=== PATIENT | female | born 1955 | race Caucasian/White ===

== ENCOUNTER 2016-10-27 20:10 | Emergency (ER) | payer BC ==
[~2016-10-27] VITALS: Ht 162.6 cm; Wt 62.0 kg
[2016-10-27 20:23] VITALS: BP 133/78; PULSE 70; RESP 18; TEMP 97.3; O2SAT 95
[2016-10-27] MEDS ORDERED: SODIUM CHLOR 0.9% 1000 ML INJ 1,000 ML IV SCH (21:12)
[2016-10-27] MEDS ORDERED: SODIUM CHLORIDE 0.9% FLUSH 10 ML FLUSH IV FLUSH PRN (21:15)
[2016-10-27] MEDS ORDERED: ONDANSETRON HCL 4 MG/2 ML VIAL IVP ONE (21:15)
[2016-10-27] MEDS ORDERED: KETOROLAC TROMETHAMINE 30 MG/ML (IVP) VIAL IVP ONE (21:15)
--- NOTE | 2016-10-27 21:24 | PD ---
HPI Chief Complaint: Complaint Time Seen by Provider: 20:54 Travel History International Travel<30 days: No Contact w/Intl Traveler<30days: No Traveled to known affect area: No History of Present Illness HPI Patient 61-year-old female with a history of kidney stones presents emergency department with left upper quadrant and left flank pain since Saturday. She went to an urgent care facility and was prescribed Macrobid for urinary tract infection. She took this for 2 days and found that it was not working so she called her primary care physician who is [place] of [place] who called her in a prescription of Cipro. She's been taking this now. She states that it is not getting any better so she decided to come in and be seen. She denies any blood in her urine but does endorse some mild nausea without vomiting. Denies any chest pain or shortness of breath. States symptoms been gradually worsening. PFSH Past Medical History Narrative Medical Hyperlipidemia ?: Not Past Surgical History Hysterectomy: Yes Family History Family History: Negative Social History Tobacco Use: No Allergies-Medications (Allergen,Severity, Reaction): Coded Allergies: Benadryl (Verified Allergy, Mild, restless, 10/27/16) Codeine (Verified Allergy, Mild, restless, 10/27/16) Morphine (Verified Allergy, Unknown, 10/27/16) Uncoded Allergies: tylenol PM (Adverse Reaction, Mild, 10/27/16) Reported Meds & Prescriptions Reported Meds & Active Scripts Active Zofran Odt (Ondansetron Odt) 4 Mg Tab 4 Mg SL Q6HR PRN Percocet (Oxycodone-Acetaminophen) 5-325 mg Tab 1 Tab PO Q6H PRN Flomax (Tamsulosin HCl) 0.4 Mg Cap 0.4 Mg PO HS Reported Cipro (Ciprofloxacin HCl) 500 Mg Tab 500 Mg PO BID Nitrofurantoin Monohydrate Macrocrystals (Nitrofurantoin Monoh/Nitrofur Macro) 100 Mg Cap 100 Mg PO BID Lipitor (Atorvastatin Calcium) 10 Mg Tab 10 Mg PO HS Premarin (Estrogens, Conjugated) 0.45 Mg Tab 0.45 Mg PO DAILY Lortab (Hydrocodone-Acetaminophen) 5-325 Mg Tab 1 Tab PO Q4H PRN Review of Systems Except as stated in HPI: all other systems reviewed are Neg Physical Exam Narrative GENERAL: Well-developed well-nourished appears in minimal discomfort. SKIN: Focused skin assessment warm/dry. HEAD: Atraumatic. Normocephalic. EYES: Pupils equal and round. No scleral icterus. No injection or drainage. ENT: No nasal bleeding or discharge. Mucous membranes pink and moist. NECK: Trachea midline. No JVD. CARDIOVASCULAR: Regular rate and rhythm. No murmur appreciated. RESPIRATORY: No accessory muscle use. Clear to auscultation. Breath sounds equal bilaterally. GASTROINTESTINAL: Abdomen soft, non-tender, nondistended. Hepatic and splenic margins not palpable. MUSCULOSKELETAL: No obvious deformities. No clubbing. No cyanosis. No edema. Minimal left-sided CVA tenderness, abdomen is soft no percussive no rebound tenderness. NEUROLOGICAL: Awake and alert. No obvious cranial nerve deficits. Motor grossly within normal limits. Normal speech. PSYCHIATRIC: Appropriate mood and affect; insight and judgment normal. Data Data Last Documented VS Vital Signs Date Time Temp Pulse Resp B/P Pulse Ox O2 Delivery O2 Flow Rate FiO2 10/27/16 23:28 97 138/74 98 10/27/16 22:34 20 10/27/16 21:43 97.9 Orders Urinalysis - C+S If Indicated (10/27/16 20:54) Complete Blood Count With Diff (10/27/16 21:12) Comprehensive Metabolic Panel (10/27/16 21:12) Lipase (10/27/16 21:12) Iv Access Insert/Monitor (10/27/16 21:12) Ecg Monitoring (10/27/16 21:12) Oximetry (10/27/16 21:12) Ondansetron Inj (Zofran Inj) (10/27/16 21:15) Sodium Chlor 0.9% 1000 Ml Inj (Ns 1000 M (10/27/16 21:12) Sodium Chloride 0.9% Flush (Ns Flush) (10/27/16 21:15) Electrocardiogram (10/27/16 21:12) Ketorolac Inj (Toradol Inj) (10/27/16 21:15) Ct Abd/Pel W/O Iv Contrast (10/27/16 ) Labs Laboratory Tests Test 10/27/16 10/27/16 21:20 21:38 Urine Color YELLOW Urine Turbidity CLEAR Urine pH 5.0 Urine Specific [place] 1.025 Urine Protein 30 mg/dL Urine Glucose (UA) NEG mg/dL Urine Ketones TRACE mg/dL Urine Occult Blood LARGE Urine Nitrite NEG Urine Bilirubin NEG Urine Leukocyte Esterase NEG Urine RBC 25-49 /hpf Urine WBC 0-2 /hpf Urine Squamous Epithelial 6-8 /hpf Cells Urine Calcium Oxalate Crystals MOD /hpf Urine Bacteria RARE /hpf Microscopic Urinalysis Comment CULT NOT INDICATED White Blood Count 10.2 TH/MM3 Red Blood Count 4.38 MIL/MM3 Hemoglobin 13.9 GM/DL Hematocrit 39.9 % Mean Corpuscular Volume 91.2 FL Mean Corpuscular Hemoglobin 31.9 PG Mean Corpuscular Hemoglobin 34.9 % Concent Red Cell Distribution Width 11.9 % Platelet Count 226 TH/MM3 Mean Platelet Volume 8.6 FL Neutrophils (%) (Auto) 80.3 % Lymphocytes (%) (Auto) 9.9 % Monocytes (%) (Auto) 5.2 % Eosinophils (%) (Auto) 1.2 % Basophils (%) (Auto) 3.4 % Neutrophils # (Auto) 8.3 TH/MM3 Lymphocytes # (Auto) 1.0 TH/MM3 Monocytes # (Auto) 0.5 TH/MM3 Eosinophils # (Auto) 0.1 TH/MM3 Basophils # (Auto) 0.3 TH/MM3 CBC Comment DIFF FINAL Differential Comment Sodium Level 142 MEQ/L Potassium Level 3.3 MEQ/L Chloride Level 107 MEQ/L Carbon Dioxide Level 25.0 MEQ/L Anion Gap 10 MEQ/L Blood Urea Nitrogen 17 MG/DL Creatinine 0.94 MG/DL Estimat Glomerular Filtration 61 ML/MIN Rate Random Glucose 113 MG/DL Calcium Level 8.9 MG/DL Total Bilirubin 0.7 MG/DL Aspartate Amino Transf 21 U/L (AST/SGOT) Alanine Aminotransferase 24 U/L (ALT/SGPT) Alkaline Phosphatase 97 U/L Total Protein 7.1 GM/DL Albumin 3.9 GM/DL Lipase 133 U/L [facility] Medical Decision Making Medical Screen Exam Complete: Yes Emergency Medical Condition: Yes Interpretation(s) EKG shows normal sinus rhythm with normal axis and normal R-wave progression. No concerning ST segment changes. Intervals within normal limits. This is normal EKG. Differential Diagnosis Kidney stone, diverticulitis, urinary tract infection, pyonephritis. Narrative Course Patient roomed emergency department, appears in minimal discomfort. Was given Toradol Zofran and fluids and had complete relief of her symptoms. CAT scan does show an 8 mm obstructing kidney stone on the right side. Patient states she's never had to have intervention before. She asked about ultrasound lithotripsy for kidney stone. At this time I be happy to refer her outpatient. Patient states currently she is on vacation and would like to return all. She states she has several contacts and the medical community there be able to get follow-up in the short-term. Discussed with her that she has a low probability of passing this kidney stone on her own approximately 20-30%. Discussed if she should have increasing abdominal pain fevers nausea or vomiting that she return the emergency department. Recommended that she continue her Cipro until gone. Discussed symptomatic management home and returned ED criteria. Diagnosis Primary Impression: Nephrolithiasis Med/Other Pt SpecificInfo: Prescription(s) given Scripts Ondansetron Odt (Zofran Odt)4 Mg Tab4 Mg SL Q6HR PRN (Nausea/Vomiting) #20 TAB Ref 0 Prov:Cristobal Garduno MD 10/27/16 Oxycodone-Acetaminophen (Percocet)5-325 mg Tab1 Tab PO Q6H PRN (PAIN) #12 TAB Ref 0 Prov:Cristobal Garduno MD 10/27/16 Tamsulosin (Flomax)0.4 Mg Cap0.4 Mg PO HS #30 CAP Ref 0 Prov:Cristobal Garduno MD 10/27/16 Disposition: 01 DISCHARGE HOME Condition: Stable Cristobal Garduno MD Oct 27, 2016 21:24
[2016-10-27 21:28] LABS: BLOOD, URINE LARGE (NEG); GLUCOSE,URINE NEG (NEG); KETONE, URINE TRACE mg/dL (NEG); NITRITE,URINE NEG (NEG)
[2016-10-27 21:41] LABS: URINE COLOR YELLOW (YELLW/STRAW)
[2016-10-27 21:42] LABS: BACTERIA, URINE RARE /hpf; CALCIUM OXALATE CRYSTALS,URINE MOD /hpf; COMMENT (UR) CULT NOT INDICATED; CULTURE IF INDICATED CULT NOT INDICATED; WBC, URINE 0-2 /hpf (0-5)
[2016-10-27 21:43] VITALS: BP 149/80; PULSE 78; RESP 20; TEMP 97.9; O2SAT 94
[2016-10-27 21:43] LABS: AUTOMATED NEUTROPHIL # 8.3 TH/MM3 (1.8-7.7); BASOPHIL # 0.3 TH/MM3 (0-0.2); BASOPHIL % 3.4 % (0.0-2.0); EOSINOPHIL # 0.1 TH/MM3 (0-0.4); EOSINOPHIL % 1.2 % (0.0-4.0); HEMATOCRIT 39.9 % (35.0-46.0); LYMPH % 9.9 % (9.0-44.0); MEAN CELL VOLUME 91.2 FL (80.0-100.0); MEAN CORPUSCULAR HEMOGLOBIN 31.9 PG (27.0-34.0); MEAN CORPUSCULAR HGB CONC 34.9 % (32.0-36.0); MONO % 5.2 % (0.0-8.0); NEUT % 80.3 % (16.0-70.0); PLATELET COUNT 226 TH/MM3 (150-450); RED BLOOD COUNT 4.38 MIL/MM3 (4.00-5.30); RED CELL DISTRIBUTION WIDTH 11.9 % (11.6-17.2); WHITE BLOOD COUNT 10.2 TH/MM3 (4.0-11.0)
[2016-10-27 21:48] LABS: HEMO FLAGS DIFF FINAL
[2016-10-27 21:50] LABS: CHLORIDE 107 MEQ/L (98-107); POTASSIUM 3.3 MEQ/L (3.5-5.1); SODIUM (NA) 142 MEQ/L (136-145)
[2016-10-27] MEDS ORDERED: HYDR-3533 PO (21:51)
[2016-10-27] MEDS ORDERED: PREM0.45 PO (21:51)
[2016-10-27] MEDS ORDERED: LIPI10TA PO (21:51)
[2016-10-27 21:54] LABS: ANION GAP 10 MEQ/L (5-15); BLOOD UREA NITROGEN 17 MG/DL (7-18)
[2016-10-27 21:57] LABS: ALT (GPT) 24 U/L (10-53); AST (GOT) 21 U/L (15-37); GLOMERULAR FILTRATION RATE 61 ML/MIN (>89)
[2016-10-27] MEDS ORDERED: CIPR-9 PO (21:58)
[2016-10-27] MEDS ORDERED: NITR100C4 PO (21:58)
[2016-10-27 21:59] LABS: TOTAL BILIRUBIN ADULT 0.7 MG/DL (0.2-1.0)
[2016-10-27 22:00] LABS: ALKALINE PHOSPHATASE 97 U/L (45-117)
--- NOTE | 2016-10-27 22:41 | RADHPO ---
EXAM DATE/TIME: 10/27/2016 22:08 [place] COMPARISON: No previous studies available for comparison. INDICATIONS : Left flank pain. ORAL CONTRAST: No oral contrast ingested. RADIATION DOSE: 9.75 CTDIvol (mGy) MEDICAL HISTORY : Renal calculi. SURGICAL HISTORY : Hysterectomy. ENCOUNTER: Initial ACUITY: 4 - 6 days PAIN SCALE: 5/10 LOCATION: Left flank TECHNIQUE: Volumetric scanning of the abdomen and pelvis was performed. Using automated exposure control and ad justment of the mA and/or kV according to patient size, radiation dose was kept as low as reasonably achievable to obtain optimal diagnostic quality images. FINDINGS: LOWER LUNGS: The visualized lower lungs are clear. LIVER: Homogeneous density without lesion. There is no dilation of the biliary tree. No calcified gallston es. SPLEEN: Normal size without lesion. PANCREAS: Within normal limits. KIDNEYS: There is a 5 x 8 mm stone in the distal left ureter approximately 1.5 cm above the ureterovesical miguelina ction. There is associated moderate hydronephrosis and hydroureter. Left kidney is swollen and there is mild perinephric edema. No stone or hydronephrosis/hydroureter of the right kidney. ADRENAL GLANDS: Within normal limits. VASCULAR: There is no aortic aneurysm. BOWEL/MESENTERY: The stomach, small bowel, and colon demonstrate no acute abnormality. There is no free intraperitone al air or fluid. Normal appendix. ABDOMINAL WALL: Within normal limits. RETROPERITONEUM: There is no lymphadenopathy. BLADDER: No wall thickening or mass. REPRODUCTIVE: Previous hysterectomy and I believe bilateral salpingo-oophorectomy no free fluid in the pelvic cavit y. INGUINAL: There is no lymphadenopathy or hernia. MUSCULOSKELETAL: There is a somewhat mottled appearance of the marrow of the visualized osseous structures, especially the sacrum and bony pelvis. CONCLUSION: 1. 5 by 8mm distal left ureteral calculus causing moderately severe obstructive uropathy. 2. Heterogeneous marrow of the visualized osseous structures, nonspecific. Lymphoproliferative diseas e would be in the differential and clinical correlation is recommended. Pop Peters MD on October 27, 2016 at 22:34 Board Certified Radiologist. This report was verified electronically.
[2016-10-27] MEDS ORDERED: TAMS5CAP PO (23:06)
[2016-10-27] MEDS ORDERED: ZOFR4TAB3 SL (23:06)
[2016-10-27] MEDS ORDERED: PERC5TAB12 PO (23:06)
[2016-10-27 23:28] VITALS: BP 138/74
--- NOTE | 2016-10-28 12:16 | EKG ---
Date Performed: 10/27/2016 Time Performed: 21:18:21 PTAGE: 61 years EKG: Sinus rhythm NORMAL ECG WARNING: DATA QUALITY MAY AFFECT INTERPRETATION NO PREVIOUS TRACING DOCTOR: Hood Gilmore Interpretating Date/Time 10/28/2016 12:13:07
== END 2016-10-27 23:32 | disposition home or self-care (01) ==
LOC: PHED 20:10
DX: N20.0 Calculus of kidney (principal); E78.5 Hyperlipidemia, unspecified
CPT/HCPCS: 74176; 80053; 81001; 83690; 85025; 93005; 96361; 96374; 96375; 99284; J1885; J2405; J7030